=== PATIENT | female | born 1985 | race Caucasian/White ===

== ENCOUNTER → 2017-06-09 | Outpatient (CLI) | payer OTHER ==
[~2017-06-09] MED LIST: ALBUTEROL2.5 MG/0.5 INH; AMOXICILLIN500 MG PO; ANAPROX DS550 MG PO; AUGMENTIN; BENTYL10 MG PO; BIRTH CONTROL1 EAC1 PO; CEPHALEXIN500 M1 PO; CHOLESTEROL MED PO; CLARITIN10 M1 PO; EC NAPROSYN500 MG PO; FLEXERIL10 MG PO; HYDROCODONE BIT1 T11 PO; IRON1 CHI; MACROBID100 M1 PO; MOTRIN,RUFEN800 MG PO; MOTRIN800 MG PO; NAPROSYN500 MG PO; PHENERGAN6.25 MG/5; PRENATAL1 TA1 PO; PROTONIX40 MG PO; Percocet 325 MG1 TAB PO; TESSALON PERLE200 MG PO; ULTRAM50 MG PO; ZITHROMAX Z PA250 MG PO; ZOFRAN ODT4 MG SL
[2017-06-09 16:05] LABS: CHLORIDE 105 mmol/L (98-107); CHOLESTEROL 175 mg/dL (<200); CPK 157 U/L (26-192); CREATININE 0.63 mg/dL (0.55-1.02); HDL CHOLESTEROL 26 mg/dl (40-60); POTASSIUM 3.8 mmol/L (3.5-5.1); SODIUM 139 mmol/L (136-145); T3 UPTAKE 30 % (31-39); THYROXINE (T4) TOTAL 8.7 ug/dl (4.8-13.9); TRIGLYCERIDES 511 mg/dl (<150)
[2017-06-10 17:07] LABS: CREATININE, RANDOM URINE 275.6 mg/dL (Not Estab.)
[2017-06-12 10:08] LABS: METANEPH-CREAT RATIO 0.6 (0.0-1.0)
== END | disposition home or self-care (01) ==
LOC: LAB 14:57
PROVIDERS: Pediatrics
DX: Z00.00 Encounter for general adult medical examination without abnormal findings (principal)

== ENCOUNTER 2017-10-20 23:19 | Emergency (ER) | payer OTHER ==
[~2017-10-20] VITALS: Ht 162.5 cm; Wt 124.7 kg
[2017-10-20] MEDS ORDERED: SEPTDS PO (23:33)
== END 2017-10-20 23:57 | disposition home or self-care (01) ==
LOC: ED 23:19
DX: L02.413 Cutaneous abscess of right upper limb (principal); K21.9 Gastro-esophageal reflux disease without esophagitis; Z79.899 Other long term (current) drug therapy

== ENCOUNTER → 2019-08-05 | Outpatient (CLI) | payer OTHER ==
[~2019-08-05] MED LIST changes: +SEPTDS PO
[2019-08-05 17:12] LABS: BASO # 0.1 10*3/uL (0.0-0.1); BASO % 0.6 % (0.0-1.0); EOS # 0.2 10*3/uL (0.0-0.4); EOS % 1.9 % (1.0-4.0); HEMATOCRIT 40.8 % (37.0-47.0); HEMOGLOBIN 12.8 g/dl (12.0-16.0); LYMPH % 16.2 % (27.0-41.0); MEAN CELL VOLUME 84.1 fl (81.0-99.0); MEAN CORPUSCULAR HGB 26.4 pg (27.0-31.0); MEAN CORPUSCULAR HGB CONC 31.4 g/dl (33.0-37.0); MEAN PLATELET VOLUME 10.2 fl (9.6-12.3); MONO # 0.6 10*3/uL (0.1-1.0); MONO % 4.6 % (3.0-9.0); NEUT # 9.3 10*3/uL (2.3-7.9); NEUT % 76.3 % (47.0-73.0); PLATELET COUNT AUTOMATED 415 10*3/uL (130-400); RED BLOOD COUNT 4.85 10*6/uL (4.10-5.10); RETICULOCYTE % 1.36 % (0.50-2.50); WHITE BLOOD COUNT 12.2 10*3/uL (4.8-10.8)
[2019-08-05 17:44] LABS: ALBUMIN 3.8 gm/dl (3.1-4.5); ALKALINE PHOSPHATASE 155 U/L (45-117); BUN 9 mg/dl (7-24); CHLORIDE 103 mmol/L (98-107); CHOLESTEROL 204 mg/dL (<200); CREATININE 0.64 mg/dL (0.55-1.02); GAMMA GLUTAMYL TRANSPEPTIDASE 33 U/L (5-55); HDL CHOLESTEROL 27 mg/dl (40-60); IRON 51 ug/dL (50-170); POTASSIUM 3.9 mmol/L (3.5-5.1); SGOT/AST 21 IU/L (3-35); SGPT/ALT 32 U/L (12-78); SODIUM 137 mmol/L (136-145); TOTAL IRON BINDING CAPACITY 339 ug/dl (250-450); TOTAL PROTEIN 8.2 gm/dL (6.4-8.2); TRIGLYCERIDES 840 mg/dl (<150)
[2019-08-05 17:52] LABS: FERRITIN 34.5 ng/mL (10.0-291.0); VITAMIN D, 25-HYDROXY 19.1 ng/mL (30-100)
== END | disposition home or self-care (01) ==
LOC: LAB 16:20
PROVIDERS: Family Medicine
DX: R79.89 Other specified abnormal findings of blood chemistry (principal); R53.83 Other fatigue; E55.9 Vitamin D deficiency, unspecified

== ENCOUNTER 2020-07-12 18:53 | Emergency (ER) | payer OTHER ==
[~2020-07-12] VITALS: Ht 162.5 cm; Wt 145.1 kg
[2020-07-12] MEDS ORDERED: AMOXICILLIN500 M2 PO ×2 (19:16)
[2020-07-12] MEDS ORDERED: ZOFRAN4 MG PO (19:16)
[2020-09-26] MEDS ORDERED: ZITHROMAX250 MG PO (12:52)
[2020-09-26] MEDS ORDERED: PREDNISONE50 MG PO (12:52)
== END 2020-07-12 19:40 | disposition home or self-care (01) ==
LOC: ED 18:53
DX: K52.9 Noninfective gastroenteritis and colitis, unspecified (principal); K08.89 Other specified disorders of teeth and supporting structures; F17.200 Nicotine dependence, unspecified, uncomplicated; Z79.899 Other long term (current) drug therapy

== ENCOUNTER 2020-09-27 14:10 | Inpatient (IN) | payer OTHER ==
[~2020-09-27] VITALS: Ht 162.5 cm; Wt 154.5 kg
[~2020-09-27 14:10] MED LIST changes: +AMOXICILLIN500 M2 PO; +PREDNISONE50 MG PO; +ZITHROMAX250 MG PO; +ZOFRAN4 MG PO
[2020-09-27 14:16] VITALS: BP 137/71
[2020-09-27 15:29] LABS: BASO # 0.1 10*3/uL (0.0-0.1); BASO % 0.3 % (0.0-1.0); EOS % 0.1 % (1.0-4.0); HEMATOCRIT 40.1 % (37.0-47.0); LYMPH # 1.2 10*3/uL (1.3-4.4); LYMPH % 7.1 % (27.0-41.0); MEAN CELL VOLUME 82.9 fl (81.0-99.0); MEAN CORPUSCULAR HGB 24.6 pg (27.0-31.0); MEAN CORPUSCULAR HGB CONC 29.7 g/dl (33.0-37.0); MONO # 0.6 10*3/uL (0.1-1.0); MONO % 3.4 % (3.0-9.0); NEUT # 14.6 10*3/uL (2.3-7.9); NEUT % 88.4 % (47.0-73.0); PLATELET COUNT AUTOMATED 441 10*3/uL (130-400); RED BLOOD COUNT 4.84 10*6/uL (4.10-5.10); RED CELL DISTRI WIDTH 17.4 % (0-14.5); WHITE BLOOD COUNT 16.6 10*3/uL (4.8-10.8)
[2020-09-27 15:40] LABS: ACT PARTIAL THROMBO TIME 30.2 SECONDS (20.0-32.1); INTERNATIONAL NORM RATIO 0.9 (2.0-3.5)
[2020-09-27 15:43] LABS: ALBUMIN 3.5 gm/dl (3.1-4.5); ALKALINE PHOSPHATASE 142 U/L (45-117); BUN 8 mg/dl (7-24); CHLORIDE 104 mmol/L (98-107); CREATININE 0.64 mg/dL (0.55-1.02); LIPASE 70 U/L (73-393); SGOT/AST 5 IU/L (3-35); SGPT/ALT 20 U/L (12-78); SODIUM 138 mmol/L (136-145); TOTAL PROTEIN 8.2 gm/dL (6.4-8.2)
[2020-09-27 15:53] LABS: BILIRUBIN Negative (Negative); BLOOD Negative (Negative); CLARITY Clear (Clear); COLOR Yellow (Yellow); GLUCOSE Negative (Negative); KETONE Negative (Negative); LEUKO ESTERASE Negative (Negative); NITRITE Negative (Negative); PH 5.5 (4.5-8.0); UROBILINOGEN 0.2 E.U./dl (0.0-1.0)
[2020-09-27 16:07] LABS: BACTERIA TRACE; MUCOUS 1+; RBC 0-2 rbc/hpf (0-2); WBC 0-2 wbc/hpf (0-5)
[2020-09-27 17:52] VITALS: BP 134/68
[2020-09-27 20:00] VITALS: BP 163/87
[2020-09-27 21:30] VITALS: BP 169/81
[2020-09-28] VITALS: BP 149/77
[2020-09-28 06:11] LABS: ALBUMIN 3.3 gm/dl (3.1-4.5); ALKALINE PHOSPHATASE 127 U/L (45-117); BUN 12 mg/dl (7-24); CHLORIDE 106 mmol/L (98-107); CHOLESTEROL 227 mg/dL (<200); CREATININE 0.58 mg/dL (0.55-1.02); FREE T4 0.96 ng/dl (0.76-1.46); HDL CHOLESTEROL 34 mg/dl (40-60); POTASSIUM 3.8 mmol/L (3.5-5.1); SGOT/AST 10 IU/L (3-35); SGPT/ALT 19 U/L (12-78); SODIUM 141 mmol/L (136-145); TOTAL PROTEIN 7.7 gm/dL (6.4-8.2); TRIGLYCERIDES 528 mg/dl (<150)
[2020-09-28 06:17] LABS: ACT PARTIAL THROMBO TIME 29.2 SECONDS (20.0-32.1); INTERNATIONAL NORM RATIO 0.9 (2.0-3.5)
[2020-09-28 07:34] LABS: BASO # 0.1 10*3/uL (0.0-0.1); BASO % 0.4 % (0.0-1.0); EOS # 0.3 10*3/uL (0.0-0.4); HEMATOCRIT 38.4 % (37.0-47.0); LYMPH # 2.9 10*3/uL (1.3-4.4); LYMPH % 17.6 % (27.0-41.0); MEAN CELL VOLUME 85.3 fl (81.0-99.0); MEAN CORPUSCULAR HGB 25.1 pg (27.0-31.0); MEAN CORPUSCULAR HGB CONC 29.4 g/dl (33.0-37.0); MEAN PLATELET VOLUME 10.6 fl (9.6-12.3); MONO # 0.9 10*3/uL (0.1-1.0); MONO % 5.7 % (3.0-9.0); NEUT % 73.7 % (47.0-73.0); PLATELET COUNT AUTOMATED 473 10*3/uL (130-400); RED CELL DISTRI WIDTH 17.6 % (0-14.5); WHITE BLOOD COUNT 16.3 10*3/uL (4.8-10.8)
[2020-09-28 08:00] VITALS: BP 140/64
[2020-09-28 11:00] LABS: VITAMIN D, 25-HYDROXY 21.1 ng/mL (30-100)
[2020-09-28 12:00] VITALS: BP 133/80
[2020-09-28 16:00] VITALS: BP 154/91
[2020-09-28 20:00] VITALS: BP 147/66
[2020-09-29] VITALS: BP 143/71
[2020-09-29 08:00] VITALS: BP 127/70
[2020-09-29 12:00] VITALS: BP 139/76
[2020-09-29 16:00] VITALS: BP 145/74
[2020-09-29 20:00] VITALS: BP 157/94
[2020-09-30] VITALS: BP 147/82
[2020-09-30] MEDS ORDERED: LIPITOR20 MG PO (02:10)
[2020-09-30] MEDS ORDERED: CETIRIZINE HYDR10 MG PO (02:22)
[2020-09-30] MEDS ORDERED: CELEXA10 MG PO (02:23)
[2020-09-30] MEDS ORDERED: LOSARTAN POTASS25 M1 PO (02:27)
[2020-09-30] MEDS ORDERED: OMEPRAZOLE40 MG PO (02:28)
[2020-09-30] MEDS ORDERED: VITAMIN D350 MC2 GT (02:30)
[2020-09-30 08:00] VITALS: BP 148/88
[2020-09-30 12:00] VITALS: BP 152/85
[2020-09-30 16:08] VITALS: BP 150/89
[2020-09-30 20:10] VITALS: BP 174/94
[2020-10-01] VITALS (10 sets, daily range): BP systolic 131–156; BP diastolic 67–93
[2020-10-01 06:14] LABS: BASO # 0.1 10*3/uL (0.0-0.1); BASO % 0.4 % (0.0-1.0); EOS # 0.2 10*3/uL (0.0-0.4); EOS % 0.7 % (1.0-4.0); HEMATOCRIT 41.1 % (37.0-47.0); LYMPH # 2.1 10*3/uL (1.3-4.4); LYMPH % 10.1 % (27.0-41.0); MEAN CELL VOLUME 81.9 fl (81.0-99.0); MEAN CORPUSCULAR HGB 25.1 pg (27.0-31.0); MEAN CORPUSCULAR HGB CONC 30.7 g/dl (33.0-37.0); MEAN PLATELET VOLUME 9.7 fl (9.6-12.3); MONO % 4.8 % (3.0-9.0); NEUT % 83.4 % (47.0-73.0); PLATELET COUNT AUTOMATED 487 10*3/uL (130-400); RED BLOOD COUNT 5.02 10*6/uL (4.10-5.10); RED CELL DISTRI WIDTH 17.2 % (0-14.5); WHITE BLOOD COUNT 20.4 10*3/uL (4.8-10.8)
[2020-10-01 06:45] LABS: ALBUMIN 3.5 gm/dl (3.1-4.5); ALKALINE PHOSPHATASE 134 U/L (45-117); BUN 11 mg/dl (7-24); CHLORIDE 99 mmol/L (98-107); CREATININE 0.61 mg/dL (0.55-1.02); SGOT/AST 16 IU/L (3-35); SGPT/ALT 36 U/L (12-78); SODIUM 134 mmol/L (136-145); TOTAL PROTEIN 8.3 gm/dL (6.4-8.2)
[2020-10-01] MEDS ORDERED: [UNRECOGNIZED DRUG - OTHER] PO (13:31)
[2020-10-02] VITALS: BP 150/71
[2020-10-02 06:46] LABS: HEMATOCRIT 41.5 % (37.0-47.0); MEAN CELL VOLUME 84.5 fl (81.0-99.0); MEAN CORPUSCULAR HGB 25.1 pg (27.0-31.0); MEAN CORPUSCULAR HGB CONC 29.6 g/dl (33.0-37.0); MEAN PLATELET VOLUME 10.6 fl (9.6-12.3); PLATELET COUNT AUTOMATED 538 10*3/uL (130-400); RED BLOOD COUNT 4.91 10*6/uL (4.10-5.10); RED CELL DISTRI WIDTH 17.3 % (0-14.5); WHITE BLOOD COUNT 23.6 10*3/uL (4.8-10.8)
[2020-10-02 07:28] LABS: CHLORIDE 100 mmol/L (98-107); PLATELET SUFFICIENCY HIGH (NORMAL); POTASSIUM 4.1 mmol/L (3.5-5.1); SODIUM 138 mmol/L (136-145); TOTAL CELLS COUNTED 100 #CELLS
[2020-10-02 07:32] LABS: BUN 12 mg/dl (7-24); CREATININE 0.72 mg/dL (0.55-1.02)
[2020-10-02 08:00] VITALS: BP 128/66
[2020-10-02] MEDS ORDERED: COLACE100 MG PO (09:23)
[2020-10-02] MEDS ORDERED: ZOFRAN4 MG PO (09:23)
[2020-10-02] MEDS ORDERED: HYDROCODONE-AC1 EAC1 PO (09:23)
== END 2020-10-02 10:29 | disposition home or self-care (01) | DRG 710 ==
LOC: ED 14:10 → 4E 19:55 → EDHOLD 19:55 → 4E 20:30
PROVIDERS: Internal Medicine; Physician Assistant; Registered Nurse; ADMIT Family Medicine; ATTEND Family Medicine
PROC: 0FT44ZZ Resection of Gallbladder, Percutaneous Endoscopic Approach (ICD-10-PCS; principal; 2020-10-01)
DX: A41.9 Sepsis, unspecified organism (principal); R09.1 Pleurisy; J20.9 Acute bronchitis, unspecified; K81.9 Cholecystitis, unspecified; D64.9 Anemia, unspecified; D47.3 Essential (hemorrhagic) thrombocythemia; Z68.43 Body mass index [BMI] 50.0-59.9, adult; K82.8 Other specified diseases of gallbladder; I10 Essential (primary) hypertension; J30.2 Other seasonal allergic rhinitis; D50.9 Iron deficiency anemia, unspecified; F12.10 Cannabis abuse, uncomplicated; R73.9 Hyperglycemia, unspecified; E53.9 Vitamin B deficiency, unspecified; E78.5 Hyperlipidemia, unspecified; K21.9 Gastro-esophageal reflux disease without esophagitis; F17.210 Nicotine dependence, cigarettes, uncomplicated; Z71.6 Tobacco abuse counseling; Z79.2 Long term (current) use of antibiotics; Z79.899 Other long term (current) drug therapy

== ENCOUNTER → 2020-11-14 | Outpatient (CLI) | payer OTHER ==
[~2020-11-14] MED LIST changes: +CELEXA10 MG PO; +CETIRIZINE HYDR10 MG PO; +COLACE100 MG PO; +HYDROCODONE-AC1 EAC1 PO; +LIPITOR20 MG PO; +LOSARTAN POTASS25 M1 PO; +OMEPRAZOLE40 MG PO; +VITAMIN D350 MC2 GT; +[UNRECOGNIZED DRUG - OTHER] PO
[2020-11-14 18:01] LABS: BASO # 0.1 10*3/uL (0.0-0.1); BASO % 0.4 % (0.0-1.0); EOS # 0.6 10*3/uL (0.0-0.4); EOS % 3.1 % (1.0-4.0); HEMATOCRIT 39.2 % (37.0-47.0); LYMPH # 2.3 10*3/uL (1.3-4.4); LYMPH % 12.4 % (27.0-41.0); MEAN CELL VOLUME 82.5 fl (81.0-99.0); MEAN CORPUSCULAR HGB 25.1 pg (27.0-31.0); MEAN CORPUSCULAR HGB CONC 30.4 g/dl (33.0-37.0); MEAN PLATELET VOLUME 10.7 fl (9.6-12.3); MONO # 0.9 10*3/uL (0.1-1.0); MONO % 4.5 % (3.0-9.0); NEUT # 14.8 10*3/uL (2.3-7.9); NEUT % 79.1 % (47.0-73.0); PLATELET COUNT AUTOMATED 475 10*3/uL (130-400); RED BLOOD COUNT 4.75 10*6/uL (4.10-5.10); RED CELL DISTRI WIDTH 17.1 % (0-14.5); RETICULOCYTE % 1.73 % (0.50-2.50); WHITE BLOOD COUNT 18.7 10*3/uL (4.8-10.8)
[2020-11-14 18:11] LABS: BILIRUBIN Negative (Negative); BLOOD 3+ (Negative); CLARITY Cloudy (Clear); COLOR Yellow (Yellow); GLUCOSE Negative (Negative); KETONE Trace (Negative); LEUKO ESTERASE Trace (Negative); NITRITE Negative (Negative); SPECIFIC GRAVITY >= 1.030 (1.001-1.030)
[2020-11-14 18:33] LABS: BACTERIA TRACE; EPITHELIAL CELLS 31-40; MUCOUS 2+
[2020-11-14 18:43] LABS: ALKALINE PHOSPHATASE 160 U/L (45-117); BUN 13 mg/dl (7-24); CHLORIDE 101 mmol/L (98-107); CHOLESTEROL 242 mg/dL (<200); CPK 85 U/L (26-192); CREATININE 0.71 mg/dL (0.55-1.02); GAMMA GLUTAMYL TRANSPEPTIDASE 53 U/L (5-55); IRON 31 ug/dL (50-170); POTASSIUM 3.8 mmol/L (3.5-5.1); SGOT/AST 25 IU/L (3-35); SODIUM 132 mmol/L (136-145); T3 UPTAKE 33 % (31-39); THYROXINE (T4) TOTAL 7.7 ug/dl (4.8-13.9); TOTAL IRON BINDING CAPACITY 339 ug/dl (250-450); TOTAL PROTEIN 7.8 gm/dL (6.4-8.2)
[2020-11-14 18:48] LABS: FERRITIN 27.2 ng/mL (10.0-291.0); VITAMIN D, 25-HYDROXY 16.4 ng/mL (30-100)
[2020-11-14 19:17] LABS: TRIGLYCERIDES 1414 mg/dl (<150)
[2020-11-14 19:18] LABS: SGPT/ALT 34 U/L (12-78)
== END | disposition home or self-care (01) ==
LOC: LAB 16:48
PROVIDERS: ATTEND Family Medicine
DX: E55.9 Vitamin D deficiency, unspecified (principal); R53.83 Other fatigue; R79.89 Other specified abnormal findings of blood chemistry

== ENCOUNTER 2020-12-08 02:55 | Emergency (ER) | payer OTHER ==
[~2020-12-08] VITALS: Ht 162.5 cm; Wt 154.2 kg
[2020-12-08] MEDS ORDERED: FUROSEMIDE20 M1 PO (03:04)
[2020-12-08] MEDS ORDERED: GEMFIBROZIL600 MG PO (03:04)
[2020-12-08] MEDS ORDERED: PREDNISONE20 M1 PO (03:31)
== END 2020-12-08 03:36 | disposition home or self-care (01) ==
LOC: ED 02:55
DX: M94.0 Chondrocostal junction syndrome [Tietze] (principal); J40 Bronchitis, not specified as acute or chronic; F12.10 Cannabis abuse, uncomplicated; Z79.899 Other long term (current) drug therapy

== ENCOUNTER 2021-09-24 19:57 | Emergency (ER) | payer OTHER ==
[~2021-09-24] VITALS: Ht 162.5 cm; Wt 136.1 kg
[~2021-09-24 19:57] MED LIST changes: +FUROSEMIDE20 M1 PO; +GEMFIBROZIL600 MG PO; +PREDNISONE20 M1 PO
[2021-09-24 20:42] LABS: BASO % 0.3 % (0.0-1.0); EOS # 0.2 10*3/uL (0.0-0.4); EOS % 1.7 % (1.0-4.0); LYMPH # 1.7 10*3/uL (1.3-4.4); LYMPH % 17.3 % (27.0-41.0); MEAN CELL VOLUME 79.2 fl (81.0-99.0); MEAN CORPUSCULAR HGB 23.7 pg (27.0-31.0); MEAN PLATELET VOLUME 9.9 fl (9.6-12.3); MONO # 0.7 10*3/uL (0.1-1.0); MONO % 6.8 % (3.0-9.0); NEUT % 73.5 % (47.0-73.0); PLATELET COUNT AUTOMATED 416 10*3/uL (130-400); RED BLOOD COUNT 5.18 10*6/uL (4.10-5.10); RED CELL DISTRI WIDTH 19.6 % (0-14.5); WHITE BLOOD COUNT 9.6 10*3/uL (4.8-10.8)
[2021-09-24 22:51] LABS: ALKALINE PHOSPHATASE 143 U/L (45-117); BUN 8 mg/dl (7-24); CHLORIDE 103 mmol/L (98-107); CREATININE 0.55 mg/dL (0.55-1.02); POTASSIUM 4.6 mmol/L (3.5-5.1); SODIUM 135 mmol/L (136-145); TOTAL PROTEIN 7.8 gm/dL (6.4-8.2)
[2021-09-24 22:52] LABS: SGOT/AST 52 IU/L (3-35); SGPT/ALT 30 U/L (12-78)
[2021-09-25] MEDS ORDERED: PREDNISONE10 M1 PO (02:02)
[2021-09-25] MEDS ORDERED: CEFDINIR300 MG PO (02:02)
== END 2021-09-25 02:25 | disposition home or self-care (01) ==
LOC: ED 19:57
PROVIDERS: Emergency Medicine
DX: J40 Bronchitis, not specified as acute or chronic (principal); J98.01 Acute bronchospasm; K21.9 Gastro-esophageal reflux disease without esophagitis; E78.5 Hyperlipidemia, unspecified; I10 Essential (primary) hypertension; Z79.899 Other long term (current) drug therapy; Z87.891 Personal history of nicotine dependence

== ENCOUNTER → 2021-09-26 | Outpatient (CLI) | payer OTHER ==
[~2021-09-26] MED LIST changes: +CEFDINIR300 MG PO; +PREDNISONE10 M1 PO
[2021-09-26 13:50] LABS: BASO # 0.1 10*3/uL (0.0-0.1); BASO % 0.4 % (0.0-1.0); BILIRUBIN Negative (Negative); BLOOD 3+ (Negative); CLARITY Cloudy (Clear); COLOR Yellow (Yellow); EOS # 0.1 10*3/uL (0.0-0.4); EOS % 0.3 % (1.0-4.0); GLUCOSE Negative (Negative); HEMATOCRIT 42.8 % (37.0-47.0); KETONE Trace (Negative); LEUKO ESTERASE 1+ (Negative); LYMPH # 1.1 10*3/uL (1.3-4.4); LYMPH % 7.5 % (27.0-41.0); MEAN CELL VOLUME 79.6 fl (81.0-99.0); MEAN CORPUSCULAR HGB 23.8 pg (27.0-31.0); MEAN CORPUSCULAR HGB CONC 29.9 g/dl (33.0-37.0); MEAN PLATELET VOLUME 10.2 fl (9.6-12.3); MONO # 0.5 10*3/uL (0.1-1.0); MONO % 3.1 % (3.0-9.0); NEUT # 13.1 10*3/uL (2.3-7.9); NEUT % 88.1 % (47.0-73.0); NITRITE Negative (Negative); PH 5.5 (4.5-8.0); PLATELET COUNT AUTOMATED 430 10*3/uL (130-400); RED BLOOD COUNT 5.38 10*6/uL (4.10-5.10); RED CELL DISTRI WIDTH 19.9 % (0-14.5); RETICULOCYTE % 1.31 % (0.50-2.50); SPECIFIC GRAVITY >= 1.030 (1.001-1.030); WHITE BLOOD COUNT 14.8 10*3/uL (4.8-10.8)
[2021-09-26 14:09] LABS: ALKALINE PHOSPHATASE 143 U/L (45-117); BUN 11 mg/dl (7-24); CHLORIDE 104 mmol/L (98-107); CHOLESTEROL 222 mg/dL (<200); CREATININE 0.74 mg/dL (0.55-1.02); GAMMA GLUTAMYL TRANSPEPTIDASE 43 U/L (5-55); POTASSIUM 4.3 mmol/L (3.5-5.1); SGOT/AST 13 IU/L (3-35); SGPT/ALT 21 U/L (12-78); SODIUM 136 mmol/L (136-145); THYROXINE (T4) TOTAL 9.3 ug/dl (4.8-13.9); TOTAL PROTEIN 8.1 gm/dL (6.4-8.2); TRIGLYCERIDES 703 mg/dl (<150); URIC ACID 5.6 mg/dL (2.6-6.0)
[2021-09-26 14:11] LABS: T3 UPTAKE 31 % (31-39); TOTAL IRON BINDING CAPACITY 439 ug/dl (250-450)
[2021-09-26 14:17] LABS: IRON 32 ug/dL (50-170)
[2021-09-26 14:19] LABS: BACTERIA 2+; MUCOUS 1+; RBC 16-20 rbc/hpf (0-2)
[2021-09-26 14:56] LABS: FERRITIN 16.1 ng/mL (10.0-291.0); VITAMIN D, 25-HYDROXY 11.3 ng/mL (30-100)
[2021-09-27 07:07] LABS: RHEUMATOID FACTOR <10.0 IU/mL (<14.0)
[2021-09-27 15:07] LABS: ANTI-DSDNA ANTIBODIES 1 IU/mL (0-9)
== END | disposition home or self-care (01) ==
LOC: LAB 13:02
PROVIDERS: ATTEND Family Medicine
DX: E78.5 Hyperlipidemia, unspecified (principal); R53.83 Other fatigue; R79.89 Other specified abnormal findings of blood chemistry; E55.9 Vitamin D deficiency, unspecified; R74.8 Abnormal levels of other serum enzymes

== ENCOUNTER → 2025-06-09 | Outpatient (CLI) | payer OTHER ==
[2025-06-09 12:31] LABS: BASO # 0.1 10*3/uL (0.0-0.1); BASO % 0.6 % (0.0-1.0); EOS # 0.3 10*3/uL (0.0-0.4); EOS % 2.8 % (1.0-4.0); MEAN CELL VOLUME 84.0 fl (81.0-99.0); MEAN CORPUSCULAR HGB 26.3 pg (27.0-31.0); MEAN PLATELET VOLUME 10.8 fl (9.6-12.3); MONO # 0.6 10*3/uL (0.1-1.0); MONO % 5.7 % (3.0-9.0); NEUT # 7.6 10*3/uL (2.3-7.9); NEUT % 72.4 % (47.0-73.0); NUCLEATED RED BLOOD CELL 0.0 % (0.0-0.0); NUCLEATED RED BLOOD CELL 0.0 10*3/uL (0.0-0.0); PLATELET COUNT AUTOMATED 348 10*3/uL (130-400); RED CELL DISTRI WIDTH 17.9 % (0-14.5)
[2025-06-09 13:07] LABS: BUN 8 mg/dl (9-23); LDL CHOLESTEROL 111 mg/dL (9-159); SGPT/ALT 10 U/L (5-49)
== END | disposition home or self-care (01) ==
LOC: LAB 11:29
PROVIDERS: ATTEND Nurse Practitioner Women's Health
DX: Z13.220 Encounter for screening for lipoid disorders (principal); Z13.1 Encounter for screening for diabetes mellitus; N92.6 Irregular menstruation, unspecified; R53.83 Other fatigue